=== PATIENT | female | born 1995 | race Caucasian/White ===

== ENCOUNTER 2019-08-22 18:12 | Emergency (ER) | payer OTHER ==
[2019-08-22 18:20] VITALS: BP 119/76
--- NOTE | 2019-08-22 18:58 | ED Physician Documentation ---
PD HPI UPPER EXT INJURY - Stated complaint Stated Complaint: RT FINGER INJURY - Chief complaint Chief Complaint: Ext Problem - History obtained from History obtained from: Patient (A few days ago she angered injured her finger while dancing. There was a deformity which she reduced. It continues to be painful.) Review of Systems Constitutional: reports: Reviewed and negative Nose: reports: Reviewed and negative Throat: reports: Reviewed and negative PD PAST MEDICAL HISTORY - Past Medical History Past Medical History: No - Allergies Allergies/Adverse Reactions: Allergies Allergy/AdvReac Type Severity Reaction Status Date / Time codeine Allergy Hallucinati Verified 08/22/19 18:16 ons erythromycin base Allergy Hives Verified 08/22/19 18:16 Penicillins Allergy Anaphylaxis Verified 08/22/19 18:16 - Social History Does the pt smoke?: No Smoking Status: Never smoker PD ED PE NORMAL - Vitals Vital signs reviewed: Yes - General General: Alert and oriented X 3, No acute distress - Extremities Extremities: Other (There is tenderness and swelling about the proximal phalanx of the right fifth digit. No deformity. No rotational deformity. No loss of saccade. Normal neurovascular function at the tip.) - Neuro Neuro: Alert and oriented X 3, Normal speech Results - Vitals Vitals: Vital Signs - 24 hr 08/22/19 18:17 Temperature 36.5 C Heart Rate 68 Respiratory 14 Rate Blood Pressure 119/76 O2 Saturation 100 Oxygen O2 Source Room air - Rads (name of study) Right fifth finger Radiology: EMP read contemporaneously (The radiologist read the study as being negative, to my eye after exam there is clearly a Nondisplaced oblique fracture of the proximal phalanx) Procedures - Splint (location) R 5th finger Splint applied by: Tech Type of splint: Metal foam finger splint Other: Patient tolerated well, No complications, Neurovascular intact Departure - Departure Disposition: 01 Home, Self Care Clinical Impression: Finger fracture, right Qualifiers: Encounter type: initial encounter Finger: little finger Fracture type: closed Phalanx: proximal Fracture alignment: nondisplaced Qualified Code(s): S62.646A - Nondisplaced fracture of proximal phalanx of right little finger, initial encounter for closed fracture Condition: Good Record reviewed to determine appropriate education?: Yes Instructions: ED Fx Finger Closed Comments: Keep the splint on and dry, remove it only briefly for bathing. Return for new or worsening symptoms. [place] week or 2. Ibuprofen as needed for pain. Forms: Activity restrictions Discharge Date/Time: 08/22/19 19:07
--- NOTE | 2019-08-22 19:04 | XRAY Report ---
Reason: finger inj Procedure Date: 08/22/2019 Accession Number: [id number] / [id number] Procedure: XR - Finger(s) RT CPT Code: Final Report FULL RESULT: EXAM: RIGHT 5th DIGIT RADIOGRAPHY EXAM DATE: 08/22/2019 06:56 PM. CLINICAL HISTORY: Finger inj. COMPARISON: None. TECHNIQUE: 3 views. FINDINGS: Bones: Normal. No fracture or bone lesion. Joints: Normal. No subluxations. Soft Tissues: Normal. No soft tissue swelling. IMPRESSION: No acute displaced fracture or malalignment. RADIA
== END 2019-08-22 19:07 | disposition home or self-care (01) ==
LOC: ED 18:12
DX: S62.646A Nondisplaced fracture of proximal phalanx of right little finger, initial encounter for closed fracture (principal); X58.XXXA Exposure to other specified factors, initial encounter; Y93.41 Activity, dancing
CPT/HCPCS: 73140; 99283

== ENCOUNTER 2021-01-11 13:17 | Emergency (ER) | payer OTHER ==
[2021-01-11 13:28] VITALS: BP 132/75
[2021-01-11 13:50] LABS: RAPID STREP SCREEN Negative (Negative)
[2021-01-11] MEDS ORDERED: DEXAMETHASONE 10 MG/ML VIAL PO STA (14:18)
--- NOTE | 2021-01-11 14:25 | ED Physician Documentation ---
History of Present Illness - Stated complaint Stated Complaint: throat swelling,congestion - Chief complaint Chief Complaint: Heent - History obtained from History obtained from: Patient - History of Present Illness Timing: How many weeks ago (3) Pain level max: 5 Pain level now: 5 - Additonal information Additional information: Patient is a 25-year-old female who presents to the emergency department for sore throat for the past 3 weeks. Worse with swallowing, nothing makes it better. She states that her lymph nodes have been swollen as well. She was seen at the [facility], had a rapid strep performed and a "flu swab". She states she does not know the results of this. Her throat felt more swollen to day. Review of Systems Constitutional: denies: Fever, Chills Nose: denies: Rhinorrhea / runny nose, Congestion Throat: reports: Sore throat Cardiac: denies: Chest pain / pressure Respiratory: denies: Cough GI: denies: Abdominal Pain, Nausea, Vomiting, Diarrhea : reports: Now EGA (approx 7 weeks ega). denies: Dysuria, Frequency, Hesitancy Skin: denies: Rash Musculoskeletal: denies: Neck pain, Back pain Neurologic: denies: Headache PD PAST MEDICAL HISTORY - Past Medical History Past Medical History: No - Past Surgical History Past Surgical History: No - Allergies Allergies/Adverse Reactions: Allergies Allergy/AdvReac Type Severity Reaction Status Date / Time codeine Allergy Hallucinati Verified 01/11/21 13:22 ons erythromycin base Allergy Hives Verified 01/11/21 13:22 Penicillins Allergy Anaphylaxis Verified 01/11/21 13:22 - Living Situation Living Situation: reports: With family Living Arrangement: reports: At home - Social History Does the pt smoke?: No Smoking Status: Never smoker Does the pt drink ETOH?: No Does the pt have substance abuse?: No - Immunizations Immunizations are current?: Yes - POLST Patient has POLST: No PD ED PE NORMAL - Vitals Vital signs reviewed: Yes - General General: Alert and oriented X 3, No acute distress - HEENT HEENT: Moist mucous membranes, Other (Posterior oropharyngeal erythema without tonsillar exudates. Uvula midline. Normal phonation. No trismus.) - Neck Neck: Supple, no meningeal sign, Other (shotty anterior lymphadenopathy. ) - Cardiac Cardiac: RRR, Strong equal pulses - Respiratory Respiratory: No respiratory distress, Clear bilaterally - Abdomen Abdomen: Soft, Non tender, Non distended - Derm Derm: Warm and dry - Neuro Neuro: Alert and oriented X 3 - Psych Psych: Normal mood, Normal affect Results - Vitals Vitals: Vital Signs - 24 hr 01/11/21 13:23 Temperature 37.2 C Heart Rate 100 Respiratory 16 Rate Blood Pressure 132/75 H O2 Saturation 97 Oxygen O2 Source Room air - Labs Labs: Laboratory Tests 01/11/21 01/11/21 13:28 14:18 Infectious [place] Assay POSITIVE A Group A Strep Rapid Negative PD MEDICAL DECISION MAKING - ED course Complexity details: reviewed results, re-evaluated patient, considered differential, d/w patient ED course: Patient is positive for mononucleosis. We will continue symptomatic care at home. Tylenol as needed for pain. Will have her continue to hydrate herself well. Patient counseled regarding signs and symptoms for which I believe and urgent re-evaluation would be necessary. Patient with good understanding of and agreement to plan and is comfortable going home at this time This document was made in part using voice recognition software. While efforts are made to proofread this document, sound alike and grammatical errors may occur. Departure - Departure Disposition: 01 Home, Self Care Clinical Impression: Infectious mononucleosis Qualifiers: Infectious mononucleosis etiology: unspecified organism Infectious mononucleosis complication: without complication Qualified Code(s): B27.90 - Infectious mononucleosis, unspecified without complication Condition: Good Instructions: ED Mononucleosis Follow-Up: your,doctor in 1 week [Other] Comments: You have tested positive for mononucleosis today. Please follow-up with your doctor for further care. Continue Tylenol as needed for pain. You can eat and drink cool liquids to help with any swelling. This would include things like popsicles and ice cream. Forms: Activity restrictions
[2021-01-11 14:30] LABS: INFECTIOUS MONONUCLEOSIS POSITIVE (Negative)
[2021-01-11] MEDS ORDERED: CHERRY SYRUP 10 ML UDC PO ONE (14:31)
== END 2021-01-11 14:50 | disposition home or self-care (01) ==
LOC: ED 13:17
DX: O98.511 Other viral diseases complicating pregnancy, first trimester (principal); B27.90 Infectious mononucleosis, unspecified without complication; Z3A.01 Less than 8 weeks gestation of pregnancy
CPT/HCPCS: 36415; 86308; 87070; 87430; 99283; 99284; A9270

== ENCOUNTER 2021-01-31 17:47 | Emergency (ER) | payer OTHER ==
[2021-01-31 17:53] VITALS: BP 113/63
--- NOTE | 2021-01-31 18:13 | ED Physician Documentation ---
History of Present Illness - Stated complaint Stated Complaint: FEMALE /OB - Chief complaint Chief Complaint: Abd Pain - Additonal information Additional information: 25-year-old female who is in her first trimester presents the ER for evaluation of vaginal spotting and light bleeding. LMP 12/07/2020. Patient has had an ultrasound of this in [place] and was reportedly normal. Patient reports that last night she began having some darker brown spotting and this morning it was management analyst pink. She also had some right lower quadrant tenderness that has waxed and waned. No fevers no vomiting. Patient did test positive for mononucleosis in late December. Review of Systems Constitutional: reports: Fatigue. denies: Fever, Chills Eyes: reports: Reviewed and negative Nose: reports: Reviewed and negative Throat: reports: Reviewed and negative Cardiac: reports: Reviewed and negative Respiratory: reports: Reviewed and negative GI: reports: Abdominal Pain. denies: Nausea, Vomiting : reports: LMP (12/07/2020), Vaginal bleeding. denies: Dysuria Skin: reports: Reviewed and negative Musculoskeletal: reports: Reviewed and negative PD PAST MEDICAL HISTORY - Past Surgical History Past Surgical History: No - Present Medications Home Medications: Ambulatory Orders Medication Instructions Recorded Confirmed No Known Home Medications 01/31/21 01/31/21 - Allergies Allergies/Adverse Reactions: Allergies Allergy/AdvReac Type Severity Reaction Status Date / Time azithromycin Allergy Hives Verified 01/31/21 17:52 erythromycin base Allergy Hives Verified 01/31/21 17:52 Penicillins Allergy Anaphylaxis Verified 01/31/21 17:52 - Social History Does the pt smoke?: No Smoking Status: Never smoker Does the pt drink ETOH?: No Does the pt have substance abuse?: No - Immunizations Immunizations are current?: Yes - POLST Patient has POLST: No PD ED PE NORMAL - General General: Alert and oriented X 3, No acute distress - HEENT HEENT: PERRL - Neck Neck: Supple, no meningeal sign - Cardiac Cardiac: RRR, No murmur - Respiratory Respiratory: Clear bilaterally - Abdomen Abdomen: Normal bowel sounds, Soft, Non tender, Non distended - Back Back: No CVA TTP, No spinal TTP - Derm Derm: Normal color, Warm and dry, No rash - Neuro Neuro: Alert and oriented X 3 Results - Vitals Vitals: Vital Signs - 24 hr 01/31/21 17:48 Temperature 36.7 C Heart Rate 77 Respiratory 16 Rate Blood Pressure 113/63 O2 Saturation 98 Oxygen O2 Source Room air - Labs Labs: Laboratory Tests 01/31/21 01/31/21 01/31/21 18:18 18:18 18:18 WBC 7.3 RBC 4.09 L Hgb 12.1 Hct 36.5 L MCV 89.2 MCH 29.6 MCHC 33.2 RDW 12.6 Plt Count 211 MPV 10.6 Neut # (Auto) 4.6 Lymph # (Auto) 2.0 [place] # (Auto) 0.5 Eos # (Auto) 0.1 Baso # (Auto) 0.0 Absolute Nucleated RBC 0.00 Nucleated RBC % 0.0 Sodium 136 Potassium 3.7 Chloride 101 Carbon Dioxide 24 Anion Gap 11.0 BUN 11 Creatinine 0.5 Estimated GFR (MDRD) 149 Glucose 90 Calcium 9.5 Serum HCG, Qual POSITIVE HCG, Quant Urine Color Urine Clarity Urine pH Ur Specific [place] Urine Protein Urine Glucose (UA) Urine Ketones Urine Occult Blood Urine Nitrite Urine Bilirubin Urine Urobilinogen Ur Leukocyte Esterase Ur Microscopic Review Urine Culture Comments Blood Type 01/31/21 01/31/21 01/31/21 18:18 18:36 18:50 WBC RBC Hgb Hct MCV MCH MCHC RDW Plt Count MPV Neut # (Auto) Lymph # (Auto) [place] # (Auto) Eos # (Auto) Baso # (Auto) Absolute Nucleated RBC Nucleated RBC % Sodium Potassium Chloride Carbon Dioxide Anion Gap BUN Creatinine Estimated GFR (MDRD) Glucose Calcium Serum HCG, Qual HCG, Quant 64819.00 Urine Color STRAW Urine Clarity CLEAR Urine pH 7.0 Ur Specific [place] 1.010 Urine Protein NEGATIVE Urine Glucose (UA) NEGATIVE Urine Ketones NEGATIVE Urine Occult Blood NEGATIVE Urine Nitrite NEGATIVE Urine Bilirubin NEGATIVE Urine Urobilinogen 0.2 (NORMAL) Ur Leukocyte Esterase NEGATIVE Ur Microscopic Review NOT INDICATED Urine Culture Comments NOT INDICATED Blood Type B POSITIVE - Rads (name of study) OB US Radiology: Final report received (Single living IUP is present with the estimated gestational age of 6 weeks 2 days. There is a small subchorionic hemorrhage.) PD MEDICAL DECISION MAKING - ED course Complexity details: reviewed results, re-evaluated patient, d/w patient ED course: 25-year-old female presents emergency department for evaluation of vaginal spotting in first trimester. She is primigravid. Rh+. Screening labs show no worrisome abnormalities. Pelvic ultrasound reveals a single living IUP estimated 6 weeks 2 days. interventional technologist tells me that there is a very small subchorionic hemorrhage. These findings were discussed with the patient and her partner at the bedside. Continue follow-up with primary care provider. Emergent return precautions were discussed. Departure - Departure Disposition: 01 Home, Self Care Clinical Impression: Threatened miscarriage in early Condition: Stable Record reviewed to determine appropriate education?: Yes Instructions: ED Miscarriage Poss Comments: Faith you were seen in the ER today for vaginal spotting in the first trimester of your . Your screening labs were all essentially normal. We did do a OB ultrasound that showed that you are approximately 6 weeks 2 days . The baby did have a good heart rate. There was a very small subchorionic hemorrhage. This is where the placenta begins to tear away partially from the uterus. In a large majority of cases the will continue. There is no specific treatment for this. I would simply recommend no sexual activity or heavy lifting. Please discuss this finding with your OB provider. If at any point you have severe vaginal bleeding, suddenly severe lower pelvic pain fevers or uncontrolled vomiting please return to the ER for a second evaluation.
[2021-01-31 18:40] LABS: BASOPHILS % (AUTO) 0.6 %; EOSINOPHILS # (AUTO) 0.1 10^3/uL (0.0-0.7); EOSINOPHILS % (AUTO) 0.8 %; HCT - HEMATOCRIT 36.5 % (37.0-47.0); HGB - HEMOGLOBIN 12.1 g/dL (12.0-16.0); MEAN CORPUSCULAR HEMOGLOBIN 29.6 pg (27.0-31.0); MEAN CORPUSCULAR HGB CONC 33.2 g/dL (32.0-36.0); MEAN CORPUSCULAR VOLUME 89.2 fL (81.0-99.0); MEAN PLATELET VOLUME 10.6 fL (7.9-10.8); MONOCYTES # (AUTO) 0.5 10^3/uL (0.0-1.0); MONOCYTES % (AUTO) 6.7 %; NEUTROPHILS # (AUTO) 4.6 10^3/uL (1.5-6.6); NEUTROPHILS % (AUTO) 63.8 %; PLT - PLATELET COUNT 211 10^3/uL (130-450); RED BLOOD COUNT 4.09 10^6/uL (4.20-5.40); RED CELL DISTRIBUTION WIDTH 12.6 % (12.0-15.0); WHITE BLOOD COUNT 7.3 x10^3/uL (4.8-10.8)
[2021-01-31 18:53] LABS: CALCIUM 9.5 mg/dL (8.5-10.3); CREATININE 0.5 mg/dL (0.4-1.0); POTASSIUM 3.7 mmol/L (3.5-5.0)
[2021-01-31 19:14] LABS: BILIRUBIN,URINE NEGATIVE (NEGATIVE); CLARITY,URINE CLEAR (CLEAR); GLUCOSE, URINE (UA) NEGATIVE (NEGATIVE); KETONES,URINE (UA) NEGATIVE (NEGATIVE); LEUKOCYTE ESTERASE, URINE NEGATIVE (NEGATIVE); NITRITE,URINE NEGATIVE (NEGATIVE); OCCULT BLOOD,URINE NEGATIVE (NEGATIVE); PROTEIN,URINE NEGATIVE (NEGATIVE); UROBILINOGEN,URINE 0.2 (NORMAL) E.U./dL (NORMAL)
[2021-01-31 19:26] LABS: HCG,QUALITATIVE BLOOD POSITIVE
--- NOTE | 2021-01-31 21:07 | Ultrasound Report ---
PROCEDURE: OB First Trimester INDICATIONS: spotting 1st trimester; RLQ pain OUTSIDE/PRIOR DATING DATA: Last menstrual period (LMP): 11/30/2020. LMP-based estimated date of delivery (BEE): 09/06/2021. First dating scan (date and location): 01/31/2021 at [facility]. Estimated date of delivery (BEE) from first dating scan: 09/24/2021. The below data below was generated using the ultrasound BEE of 09/24/2021. TECHNIQUE: Real-time scanning was performed of the fetus and maternal pelvic organs, with image documentation. Additional transvaginal images were obtained. COMPARISON: None. FINDINGS: Embryo: There is a single living intrauterine with a gestational sac and pole. The e stimated gestational age is 6 weeks 2 days. cardiac activity is present with heart rate 1 12 BPM. Measurement variability in dating: +/- 4 weeks by LMP, +/- 7 days by mean sac diameter (use before 6 weeks gestation if crown-rump length not able to be measured), +/- 5 days by crown-rump length (6-12 weeks gestation). Maternal organs: Ovaries are grossly normal. There is a corpus luteal cyst in the right ovary.. IMPRESSION: 1. A single living IUP is present with the estimated gestational age 6 weeks 2 days based on the [facility] ultrasound corresponding to ultrasound BEE 09/24/2021. Reviewed by: Abi Byrd MD on 01/31/2021 9:06 PM PDT Approved by: Abi Byrd MD on 01/31/2021 9:06 PM PDT Station ID: [id number]
--- NOTE | 2021-01-31 21:07 | Ultrasound Report ---
PROCEDURE: OB Transvaginal INDICATIONS: spotting first trimester; RLQ pain OUTSIDE/PRIOR DATING DATA: Last menstrual period (LMP): 11/30/2020. LMP-based estimated date of delivery (BEE): 09/06/2021. First dating scan (date and location): 01/31/2021 at [facility]. Estimated date of delivery (BEE) from first dating scan: 09/24/2021. The below data below was generated using the ultrasound BEE of 09/24/2021. TECHNIQUE: Real-time scanning was performed of the fetus and maternal pelvic organs, with image documentation. COMPARISON: None. FINDINGS: Embryo: There is a single living intrauterine with a gestational sac and pole. The e stimated gestational age is 6 weeks 2 days. cardiac activity is present with heart rate 1 12 BPM. Measurement variability in dating: +/- 4 weeks by LMP, +/- 7 days by mean sac diameter (use before 6 weeks gestation if crown-rump length not able to be measured), +/- 5 days by crown-rump length (6-12 weeks gestation). Maternal organs: Ovaries are grossly normal. There is a corpus luteal cyst in the right ovary.. IMPRESSION: 1. A single living IUP is present with the estimated gestational age 6 weeks 2 days based on the [facility] ultrasound corresponding to ultrasound BEE 09/24/2021. Reviewed by: Abi Byrd MD on 01/31/2021 9:06 PM PDT Approved by: Abi Byrd MD on 01/31/2021 9:06 PM PDT Station ID: [id number]
== END 2021-01-31 21:23 | disposition home or self-care (01) ==
LOC: ED 17:47
DX: O20.0 Threatened abortion (principal); O20.8 Other hemorrhage in early pregnancy; Z3A.01 Less than 8 weeks gestation of pregnancy
CPT/HCPCS: 36415; 80048; 81001; 81003; 84702; 84703; 85025; 86900; 86901; 87086; 99284

== ENCOUNTER 2021-02-21 07:00 | Outpatient (CLI) | payer OTHER ==
[2021-02-21 12:10] LABS: MUDS CUTOFF CONCENTRATIONS CUTOFF CONC BELOW:
[2021-02-21 12:19] LABS: BILIRUBIN,URINE NEGATIVE (NEGATIVE); GLUCOSE, URINE (UA) NEGATIVE (NEGATIVE); KETONES,URINE (UA) NEGATIVE (NEGATIVE); LEUKOCYTE ESTERASE, URINE NEGATIVE (NEGATIVE); NITRITE,URINE NEGATIVE (NEGATIVE); OCCULT BLOOD,URINE NEGATIVE (NEGATIVE); PH,URINE 7.5 PH (5.0-7.5); PROTEIN,URINE NEGATIVE (NEGATIVE); UROBILINOGEN,URINE 0.2 (NORMAL) E.U./dL (NORMAL)
[2021-02-21 12:21] LABS: CLARITY,URINE CLEAR (CLEAR)
[2021-02-21 12:32] LABS: THC CANNABINOID SCREEN, URINE NEGATIVE (NEGATIVE)
[2021-02-21 12:33] LABS: AMPHETAMINE SCREEN,URINE NEGATIVE (NEGATIVE); BARBITURATE SCREEN,UR NEGATIVE (NEGATIVE); BENZODIAZEPINES SCREEN, URINE NEGATIVE (NEGATIVE); COCAINE SCREEN URINE NEGATIVE (NEGATIVE); METHADONE SCREEN, URINE NEGATIVE (NEGATIVE); METHAMPHETAMINES SCREEN, URINE NEGATIVE (NEGATIVE); OPIATE SCREEN, URINE NEGATIVE (NEGATIVE); OXYCODONE SCREEN, URINE NEGATIVE (NEGATIVE); PROPOXYPHENE SCREEN, URINE NEGATIVE (NEGATIVE); TRICYCLIC ANTIDEPRESSANT,URINE NEGATIVE (NEGATIVE)
[2021-02-21 13:10] LABS: BACTERIA,URINE None Seen /HPF (None Seen); RBC,URINE None Seen /HPF (0-5); SQUAMOUS EPITHELIAL CELL,UR RARE Squamous (<= Few); WBC,URINE 0-3 /HPF (0-5)
== END 2021-02-21 23:59 | disposition home or self-care (01) ==
LOC: LAB.R 07:00
PROVIDERS: ATTEND Advanced Practice Midwife
DX: Z34.00 Encounter for supervision of normal first pregnancy, unspecified trimester (principal); Z36.89 Encounter for other specified antenatal screening
CPT/HCPCS: 80306; 81001; 81003; 87086

== ENCOUNTER 2021-02-28 15:16 | Outpatient (CLI) | payer OTHER ==
--- NOTE | 2021-02-28 17:25 | Ultrasound Report ---
PROCEDURE: OB First Trimester w/TV INDICATIONS: SUPERVISION OF , VAGINAL BLEEDING OUTSIDE/PRIOR DATING DATA: Last menstrual period (LMP): 11/30/2020. LMP-based estimated date of delivery (BEE): 09/06/2021. TECHNIQUE: Real-time scanning was performed of the fetus and maternal pelvic organs, with image documentation. Endovaginal scanning was also performed to better visualize the fetus and maternal ovaries. COMPARISON: Prior first trimester ultrasound dated 01/31/2021 FINDINGS: Embryo: [place]-rump length measures 2.9 cm corresponding to 8 weeks 0 days and no heart tones a re seen. Heart rate: No heart tones. Measurement variability in dating: +/- 4 weeks by LMP, +/- 7 days by mean sac diameter (use before 6 weeks gestation if crown-rump length not able to be measured), +/- 5 days by crown-rump length (6-12 weeks gestation). Maternal organs: Ovaries within normal limits. IMPRESSION: demise at roughly 7 weeks 6 days by crown-rump length. Results given to Christina VARGAS by the infant and toddler teacher at 1607 hours 02/28/2021. Reviewed by: PAOLO Wilkinson on 02/28/2021 5:24 PM PDT Approved by: Liborio Fernandez MD on 02/28/2021 5:24 PM PDT Station ID: [id number]
== END 2021-02-28 15:17 | disposition home or self-care (01) ==
LOC: DI 15:16
PROVIDERS: ATTEND Advanced Practice Midwife
DX: O02.1 Missed abortion (principal); Z3A.01 Less than 8 weeks gestation of pregnancy

== ENCOUNTER 2021-03-04 16:05 | Outpatient (CLI) | payer OTHER | END 2021-03-04 16:06 | disposition home or self-care (01) | LOC: LAB.N 16:05 | PROVIDERS: ATTEND Obstetrics & Gynecology | DX: O03.9 Complete or unspecified spontaneous abortion without complication (principal) | CPT/HCPCS: 36415; 84702 ==

== ENCOUNTER 2021-03-06 16:17 | Outpatient (CLI) | payer OTHER | END 2021-03-06 16:18 | disposition home or self-care (01) | LOC: LAB 16:17 | PROVIDERS: ATTEND Nurse Practitioner Obstetrics & Gynecology | DX: O02.1 Missed abortion (principal) | CPT/HCPCS: 36415; 84702 ==

== ENCOUNTER 2021-03-11 15:59 | Outpatient (CLI) | payer OTHER ==
--- NOTE | 2021-03-11 17:19 | HISTORY & PHYSICAL EXAMINATION ---
HPI - History of Present Illness HPI Comment/Other: HPI: Patient presents today for a pre-operative appointment for a missed miscarriage. Patient is a 25 yo here for preop assessment for D&C for missed SAB. Alphonso presents today with her partner Elliot for missed AB. Timeline below: 01/18 @ [facility]: 5w3d 01/24 @ [facility]: sac with pole. Yolk sac seen. FHR not detected 01/31 @ [facility]: SLIUP 6w2d FHR 112 02/07 @ [place] [facility]: CRL = 13mm c/w 7.3wk U/S. FHR 147bpm. Small perigestational sac bleed site 02/28 @ [facility]: LMP 10w3d however U/S 7w6d with no FHR. Irregular gestational sac. HCG on 03/04/21 was 85642. HCG on 03/06/21 was 85683. No VB or cramping. Patient was seen by MARIAM Meyers CNM on 03/06/21 and options for management were reviewed. Patient wants to proceed with suction D&C. She was offered a procedure on 03/08/21 and prefers to keep scheduled date of 03/12/21. No changes in health hx since time of prior exam Confirmed Rh positive. Allergies: * PENICILLIN BASE (Critical) * AZITHROMYCIN (Severe) * ERYTHROMYCIN (Severe) Medications: * prenat.vits,hu,bbf-uqjp-evpcz Take 1 tablet by mouth once a day Zofran 4 mg tablet (ondansetron hcl) Take 1 tablet by mouth every eight hours as needed May take 2 tablets. Problems: Preoperative examination (ICD-V72.84) (GAP38-X28.818) , missed (ICD-632) (UZN22-U88.1) Vaginal bleeding, first trimester (ICD-641.90) (FVL60-Z74.91) Encounter for other specified screening (UKF65-V43.89) Supervision, normal , primigravida (ICD-V22.0) (LZK44-M84.00) Vital Signs: Patient Profile: 25 Years Old Female Height: 66 inches Weight: 206.4 pounds BMI: 33.43 BP sittin / 69 Cuff size: large Pt. in pain? 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 Physical Psych: GEN: NAD HEAD: NCAT EYES: No scleral icterus or conjunctival injection CV: RRR RESP: CTAB, normal effort ABD: S&NT/ND PSYCH: appropriate affect NEURO: alert and oriented, normal gait and coordination EXT: WWP Impression & Recommendations: Problem # 1: Preoperative examination (ICD-V72.84) (MGS05-M14.818) Orders: PRE OP -98035 (CPT-67985) Reviewed risks/benefits/alternatives to hysteroscopy/polpectomy Risks include, but are not limited to, bleeding, infection, damage to neatby tissue and organs. On average, expected EBL is minimal. In the event of an unanticipated blood loss, patient is willing to undergo transfusion. Risks of blood transfusion include infection as well as transfusion reaction Risk of HIV 1/2million nationwide Risk of Hepatitis 1/1 million Risks of transfusion reaction and mgt reviewed Infection risk low given that no incisions abraham be made and we will be using physiologic orifices. Will provide doxycycline 100 mg po prior to procedure in preop Damage to nearby tissue and organs was reviewed with emphasis on uterine perfor ation and management, which can include surgical intervention based on bleeding risk. Reviewed management of complications and efforts to avoid such outcomes but reviewed that they may occur despite our best efforts. Patient agreed to the aforementioned procedure and written informed consent was obtained. Gender ID Identifies as Female P: 0 A: 0 EDC: 09/23/2021 Height: 66 (02/20/2021 11:33:17 AM) Weight: 206.4 Blood Type: B+ (01/31/2021 11:33:17 AM) RH Type: positive (01/31/2021 11:33:17 AM) Is pt sexualy active? yes Last Pap: Negative (03/13/2020 1:09:33 PM) PMH/PSH - Past Medical History MRSA Hx?: No Social & Family Hx - Social History Does the pt smoke?: No Smoking Status: Never smoker Does the pt drink ETOH?: No Does the pt have substance abuse?: No - POLST Patient has POLST: No Meds/Allgy - Home Medications Home Medications: Ambulatory Orders Medication Instructions Recorded Confirmed No Known Home Medications 01/31/21 01/31/21 - Allergies Allergies/Adverse Reactions: Allergies Allergy/AdvReac Type Severity Reaction Status Date / Time azithromycin Allergy Hives Verified 01/31/21 17:52 erythromycin base Allergy Hives Verified 01/31/21 17:52 Penicillins Allergy Anaphylaxis Verified 01/31/21 17:52
== END 2021-03-11 16:00 | disposition home or self-care (01) ==
LOC: LAB.N 15:59
PROVIDERS: ATTEND Nurse Practitioner Obstetrics & Gynecology
DX: O02.1 Missed abortion (principal)
CPT/HCPCS: 36415; 84702

== ENCOUNTER 2021-03-12 06:39 | Day surgery (SDC) | payer OTHER ==
[2021-03-12] MEDS ORDERED: PROPOFOL 200 MG/20 ML VIAL IVP ONE (07:31)
[2021-03-12] MEDS ORDERED: LIDOCAINE-MPF 2% 5 ML VIAL ONE (07:31)
[2021-03-12] MEDS ORDERED: KETOROLAC 30 MG/ML VIAL ONE (07:31)
[2021-03-12] MEDS ORDERED: diphenhydrAMINE INJ 50 MG/ML VIAL ONE (07:31)
[2021-03-12] MEDS ORDERED: ONDANSETRON 4 MG/2 ML VIAL ONE (07:31)
[2021-03-12] MEDS ORDERED: MIDAZOLAM 2 MG/2 ML VIAL ONE (07:31)
[2021-03-12] MEDS ORDERED: fentaNYL 100 MCG/2 ML VIAL ONE (07:35)
--- NOTE | 2021-03-12 07:41 | ANESTHESIA ---
Pre-Anesthesia VS, & Labs - Diagnosis missed AB - Procedure D&C Height: 5 ft 6 in - NPO >8 hours - Is Patient ?: No Home Medications and Allergies No Known Home Medications 01/31/21 Allergies/Adverse Reactions: Allergies Allergy/AdvReac Type Severity Reaction Status Date / Time azithromycin Allergy Hives Verified 01/31/21 17:52 erythromycin base Allergy Hives Verified 01/31/21 17:52 Penicillins Allergy Anaphylaxis Verified 01/31/21 17:52 Anes History & Medical History - Anesthetic History Anesthesia Complications: reports: No previous complications Family history of Anesthesia Complications: Denies Family history of Malignant Hyperthermia: Denies - Medical History Cardiovascular: reports: None Pulmonary: reports: Asthma (environmental while living in [place]) Gastrointestinal: reports: None Urinary: reports: Benign prostate hypertrophy Neuro: reports: None Musculoskeletal: reports: None Smoking Status: Never smoker Exam General: Alert, Oriented x3, Cooperative, No acute distress Dental: WNL Mouth Openin Fingerbreadth Neck Mobility: Normal Mallampati classification: I Thyromental Distance: 4-6 cm Respiratory: Lungs clear Cardiovascular: Regular rate Plan Anesthesia Type: General Consent for Procedure(s) Verified and Reviewed: Yes Code Status: Attempt Resuscitation ASA classification: 2-Mild systemic disease Is this case an emergency?: No
[2021-03-12] MEDS ORDERED: LACTATED RINGERS 1,000 ML IV ONE ×2 (07:42→08:58)
[2021-03-12] MEDS ORDERED: LIDOCAINE 2%-EPI 1:100000 20 ML MDV ONE (07:43)
[2021-03-12] MEDS ORDERED: ACETAMINOPHEN 500 MG TABLET PO ONE (07:51)
[2021-03-12] MEDS ORDERED: CELECOXIB 100 MG CAPSULE PO ONE (07:51)
[2021-03-12] MEDS ORDERED: GABAPENTIN 400 MG CAPSULE ONE (07:51)
[2021-03-12] MEDS ORDERED: fentaNYL 100 MCG/2 ML VIAL IVP PRN (07:53)
[2021-03-12] MEDS ORDERED: ONDANSETRON 4 MG/2 ML VIAL IVP PRN (07:53)
[2021-03-12] MEDS ORDERED: HYDROmorphone 0.5 MG/0.5 ML SYRINGE IVP PRN (07:53)
[2021-03-12] MEDS ORDERED: ATROPINE ABBOJECT 1 MG/10 ML SYRINGE IVP PRN (07:53)
[2021-03-12] MEDS ORDERED: NALOXONE 0.4 MG/ML VIAL IVP PRN (07:53)
[2021-03-12] MEDS ORDERED: MORPHINE 2 MG/ML CARPUJECT IVP PRN (07:53)
[2021-03-12] MEDS ORDERED: DOXYCYCLINE 100 MG TABLET PO ONE (07:56)
[2021-03-12] MEDS ORDERED: LACTATED RINGERS 1,000 ML IV SCH (08:00)
[2021-03-12] MEDS ORDERED: BUPIVACAINE 0.25% PF 30 ML VIAL ONE (08:22)
[2021-03-12] MEDS ORDERED: LIDOCAINE 2%-EPI 1:100000 20 ML MDV SUBQ ONE (08:29)
[2021-03-12] MEDS ORDERED: BUPIVACAINE 0.5% PF 30 ML VIAL INFIL ONE (08:30)
--- NOTE | 2021-03-12 09:06 | OPERATIVE REPORT ---
Operative Report - General Planned Procedure: Suction D&C Pre-Op Diagnosis: Incomplete SAB at 7w6d Procedure Performed: Suction D&C Post Op Diagnosis: Same - Procedure Note Primary Surgeon: Saira Mcdermott MD Secondary Surgeon: Sp Wood MD Anesthesia Provider: Niecy Amin MD Anesthesia Technique: General mask Pathology: Products of conception IV Fluids (mL): 500 Estimated Blood Loss (mL): 200 Urine Output (mL): 0 (In and out catheterization without notable output) Indications: Patient is a 25 yo here for D&C for missed SAB. Patient has known missed AB of a desired . Assessment timeline below: 01/18 @ [facility]: 5w3d 01/24 @ [facility]: sac with pole. Yolk sac seen. FHR not detected 01/31 @ [facility]: SLIUP 6w2d FHR 112 02/07 @ [facility]: CRL = 13mm c/w 7.3wk U/S. FHR 147bpm. Small perigestational sac bleed site 02/28 @ [facility]: LMP 10w3d however U/S 7w6d with no FHR. Irregular gestational sac. HCG on 03/04/21 was 33022. HCG on 03/06/21 was 05920. No VB or cramping. Patient was seen by MARIAM Meyers CNM on 03/06/21 and options for management were reviewed. Patient wants to proceed with suction D&C. No changes in health hx since time of prior exam Confirmed Rh positive. Findings: Uterus palpates to 8 week size. Normal appearing nulliparous cervix. Complications: None - Other Other Information/Narrative: Risks benefits and alternatives to the procedure were reviewed. Consent was again confirmed. Patient was taken to the operating room where she underwent general anesthesia. She was positioned in dorsolithotomy position with legs resting in yellowfin stirrups. She was prepped and draped in the usual sterile fashion. Doxycycline 100 mg po given in Preop. Preoperative checklist was performed. Exam under anesthesia was performed. Speculum was placed in the vagina and the cervix was visualized. Single-tooth tenaculum was placed at the anterior cervical lip. Paracervical block was administered using a total of 20 cc of 0.25% bupivicaine and 2% lidocaine with epinephrine was injected at the 4:00 and 8:00 positions lateral to the portio of the cervix. The cervical os was serially dilated with Hegar dilators to accommodate the caliber of the 8 mm flexible suction catheter. The 8 mm flexible catheter was inserted into the cervical os. Tissue was cleared from cavity in 4 passes. Gentle sharp curettage was performed to confirm clearance of tissue from the uterine cavity. Single toothed tenaculum was removed and good hemostasis was noted. Procedure was well tolerated and without complication. Dr. Wood present for mentoring process.
[2021-03-12 09:17] VITALS: BP 103/57
[2021-03-12] MEDS ORDERED: oxyCODONE 5 MG TABLET PO PRN (09:23)
--- NOTE | 2021-03-12 11:53 | ANESTHESIA POST OP EVALUATION ---
Anesthesia Post Eval - Post Anesthesia Eval Vitals: Last Vital Signs Temp 36.5 C 03/12/21 09:16 Pulse 70 03/12/21 09:16 Resp 17 03/12/21 09:16 BP 103/57 L 03/12/21 09:16 Pulse Ox 100 03/12/21 09:16 CV Function Including HR & BP: Stable Pain Control: Satisfactory Nausea & Vomiting: Negative Mental Status: Baseline Respiratory Status: Airway Patent Hydration Status: Satisfactory Anesthesia Complications: None
== END 2021-03-12 06:40 | disposition home or self-care (01) ==
LOC: SDS 06:39 → EDSTATUS 11:01
PROVIDERS: ATTEND Obstetrics & Gynecology
PROC: 10D17ZZ Extraction of Products of Conception, Retained, Via Natural or Artificial Opening (ICD-10-PCS; principal; 2021-03-12 08:00)
DX: O03.4 Incomplete spontaneous abortion without complication (principal)
CPT/HCPCS: 87491; 87591; 87661

== ENCOUNTER 2021-03-18 16:38 | Outpatient (CLI) | payer OTHER | END 2021-03-18 16:39 | disposition home or self-care (01) | LOC: LAB.N 16:38 | PROVIDERS: ATTEND Obstetrics & Gynecology | DX: O02.1 Missed abortion (principal) | CPT/HCPCS: 36415; 84702 ==

== ENCOUNTER 2021-04-08 10:42 | Outpatient (CLI) | payer OTHER | END 2021-04-08 10:43 | disposition home or self-care (01) | LOC: LAB.N 10:42 | PROVIDERS: ATTEND Obstetrics & Gynecology | DX: O02.1 Missed abortion (principal) | CPT/HCPCS: 36415; 84702 ==

== ENCOUNTER 2021-04-22 10:35 | Outpatient (CLI) | payer OTHER | END 2021-04-22 10:36 | disposition home or self-care (01) | LOC: LAB.N 10:35 | DX: Z36.89 Encounter for other specified antenatal screening (principal) ==

== ENCOUNTER 2021-04-22 13:52 | Outpatient (CLI) | payer OTHER | END 2021-04-22 13:53 | disposition home or self-care (01) | LOC: LAB.N 13:52 | PROVIDERS: ATTEND Nurse Practitioner Obstetrics & Gynecology | DX: O02.1 Missed abortion (principal) | CPT/HCPCS: 36415; 84702 ==

== ENCOUNTER 2021-07-23 08:00 | Outpatient (CLI) | payer OTHER | END 2021-07-23 23:59 | LOC: LAB.N 08:00 | PROVIDERS: ATTEND Nurse Practitioner | DX: R09.81 Nasal congestion (principal); Z20.822 Contact with and (suspected) exposure to COVID-19 ==